=== PATIENT | female | born 1990 | race Two or more races ===

== ENCOUNTER 2016-10-20 08:55 | Emergency (ER) | payer OTHER ==
[~2016-10-20] VITALS: Ht 160 cm; Wt 54.0 kg
[~2016-10-20 08:55] MED LIST: MET250T PO
[2016-10-20 09:09] VITALS: BP 115/65
[2016-10-20 10:11] LABS: Urine Bilirubin Negative (Negative); Urine Color Yellow (Yellow); Urine Glucose Normal (Normal); Urine Ketone Negative (Negative); Urine Nitrite Negative (Negative); Urine RBC 5 /hpf (0 - 4); Urine Squamous Epithelial Cell FEW /hpf (<5); Urine Urobilinogen Normal (Negative); Urine pH 6.5 (5.0-8.0)
[2016-10-20 10:12] LABS: Urine Blood 2+ /uL (Negative)
== END 2016-10-20 12:00 | disposition left against medical advice (07) ==
LOC: ER 08:55
DX: O20.9 Hemorrhage in early pregnancy, unspecified (principal); Z3A.00 Weeks of gestation of pregnancy not specified; Z53.21 Procedure and treatment not carried out due to patient leaving prior to being seen by health care provider
CPT/HCPCS: 81001

== ENCOUNTER 2018-02-25 06:06 | Emergency (ER) | payer SELFPAY ==
[~2018-02-25] VITALS: Ht 160 cm; Wt 49.9 kg
[2018-02-25 06:19] VITALS: BP 114/76
== END 2018-02-25 08:36 | disposition home or self-care (01) ==
LOC: ER 06:10
DX: J20.9 Acute bronchitis, unspecified (principal); Z90.89 Acquired absence of other organs
CPT/HCPCS: 71046

== ENCOUNTER → 2019-07-05 | Emergency (ER) | payer OTHER ==
[~2019-07-05] VITALS: Ht 157.5 cm; Wt 52.6 kg
[~2019-07-05] MED LIST changes: -MET250T PO; +METH250T4 PO
[2019-07-05 15:54] VITALS: BP 123/85
[2019-07-05 16:43] LABS: Urine WBC None Seen /hpf (0 - 5)
[2019-07-05 16:55] LABS: Urine Bacteria FEW /hpf (None Seen); Urine Blood Negative /uL (Negative); Urine Specific Gravity 1.003 (1.001-1.035)
== END | disposition home or self-care (01) ==
LOC: ER 14:47
DX: R10.2 Pelvic and perineal pain (principal); Z88.0 Allergy status to penicillin; Z90.89 Acquired absence of other organs
CPT/HCPCS: 76856; 81001; 81025

== ENCOUNTER 2020-02-03 15:22 | Inpatient (IN) | payer MEDICAID, OTHER ==
[~2020-02-03] VITALS: Ht 160 cm; Wt 55.8 kg
[2020-02-03] MEDS ORDERED: ONDANSETRON HCL 4 MG/2 ML VIAL IV ONE (17:00)
[2020-02-03] MEDS ORDERED: SODIUM CHLORIDE 0.9% 1,000 ML IVB ONE (17:00)
[2020-02-03 17:41] LABS: Basophils # (auto) 0 10 ^3/uL (0-0.2); Basophils % (auto) 0.6 % (0.0-2.0); Eosinophils # (auto) 0.1 10 ^3/uL (0-0.8); Hematocrit 42.3 % (36.0-46.0); Hemoglobin 14.5 g/dL (12.2-16.2); Lymphocytes % (auto) 30.1 % (10.0-50.0); Mean Corpuscular Hemoglobin 29.9 pg (28.0-32.0); Mean Corpuscular Hgb Conc. 34.2 g/dL (32.0-36.0); Mean Corpuscular Volume 87.4 fL (80.0-100.0); Monocytes # (auto) 0.4 10 ^3/uL (0-1.3); Monocytes % (auto) 5.5 % (0.0-12.0); Neutrophils # (auto) 4.1 10 ^3/uL (1.6-8.6); Neutrophils % (auto) 61.8 % (37.0-80.0); Nucleated Red Blood Cells % 0.2 %; Platelet Count (auto) 258 10^3/uL (140-450); Red Blood Cells 4.84 10^6/uL (4.0-5.20); Red Cell Distribution Width 13.3 % (11.8-14.3); White Blood Cell 6.6 10^3/uL (4.4-10.8)
[2020-02-03 17:54] LABS: Albumin 4.1 g/dL (3.4-5.0); Anion Gap 6 (5-15); Blood Urea Nitrogen 13 mg/dL (7-18); Calcium 8.5 mg/dL (8.5-10.1); Carbon Dioxide 26 mmol/L (21-32); Chloride 106 mmol/L (98-107); Glucose 81 mg/dL (74-106); Potassium 3.7 mmol/L (3.5-5.1); Sodium 138 mmol/L (136-145)
[2020-02-03 17:59] LABS: Alanine Aminotransferase 18 U/L (13-56); Alkaline Phosphatase 84 U/L (45-117); Aspartate Aminotransferase 17 U/L (15-37); BUN/Creatinine Ratio 18.1; Bilirubin, Total 0.3 mg/dL (0.2-1.0); GFR African American 122 mL/min; GFR Non-African American 101 mL/min; Total Protein 7.6 g/dL (6.4-8.2)
[2020-02-03] MEDS ORDERED: ACETAMINOPHEN 325 MG TAB PO ONE (19:00)
[2020-02-03] MEDS ORDERED: MORPHINE SULF INJ 2 MG/ML SYRINGE 1ML IV PRN (21:30)
[2020-02-03] MEDS ORDERED: ACETAMINOPHEN 325 MG TAB PO PRN (21:30)
[2020-02-03] MEDS ORDERED: TEMAZEPAM 15 MG CAP PO PRN (21:30)
[2020-02-03] MEDS ORDERED: ONDANSETRON HCL 4 MG/2 ML VIAL IV PRN (21:30)
[2020-02-03] MEDS ORDERED: NITROGLYCERIN 0.4 MG SL TAB SL PRN (21:30)
[2020-02-03] MEDS: FAMOTIDINE 20 MG TAB PO SCH (21:59)
[2020-02-03 22:42] VITALS: BP 134/92
[2020-02-03] MEDS: HYDROcodone-ACET 5/325MG TAB PO PRN (23:56)
[2020-02-04] VITALS (7 sets, daily range): BP systolic 98–116; BP diastolic 60–71
[2020-02-04] MEDS ORDERED: INFLUENZA QUAD 2020-2021 0.5 ML SYRG IM ONE (01:00)
[2020-02-04] MEDS ORDERED: LEVO25TA6 PO (01:08)
[2020-02-04 06:15] LABS: Basophils # (auto) 0 10 ^3/uL (0-0.2); Basophils % (auto) 0.6 % (0.0-2.0); Eosinophils # (auto) 0.1 10 ^3/uL (0-0.8); Eosinophils % (auto) 1.8 % (0.0-7.0); Hematocrit 40.8 % (36.0-46.0); Hemoglobin 13.6 g/dL (12.2-16.2); Lymphocytes # (auto) 2.3 10 ^3/uL (0.4-5.4); Lymphocytes % (auto) 36.8 % (10.0-50.0); Mean Corpuscular Hemoglobin 29.4 pg (28.0-32.0); Mean Corpuscular Hgb Conc. 33.3 g/dL (32.0-36.0); Mean Corpuscular Volume 88.4 fL (80.0-100.0); Monocytes # (auto) 0.3 10 ^3/uL (0-1.3); Monocytes % (auto) 5.2 % (0.0-12.0); Neutrophils # (auto) 3.4 10 ^3/uL (1.6-8.6); Neutrophils % (auto) 55.6 % (37.0-80.0); Nucleated Red Blood Cells % 0.1 %; Platelet Count (auto) 247 10^3/uL (140-450); Red Blood Cells 4.62 10^6/uL (4.0-5.20); Red Cell Distribution Width 13.3 % (11.8-14.3); White Blood Cell 6.1 10^3/uL (4.4-10.8)
[2020-02-04] MEDS: LEVOTHYROXINE SODIUM 25 MCG TAB PO SCH (06:30)
[2020-02-04 06:38] LABS: Potassium 3.6 mmol/L (3.5-5.1)
[2020-02-04 06:48] LABS: BUN/Creatinine Ratio 15.8; Calcium 8.6 mg/dL (8.5-10.1)
[2020-02-04] MEDS: FAMOTIDINE 20 MG TAB PO SCH ×2 (09:10→21:39)
[2020-02-04] MEDS: HYDROcodone-ACET 5/325MG TAB PO PRN ×2 (14:09→21:43)
[2020-02-05] VITALS (7 sets, daily range): BP systolic 93–107; BP diastolic 55–64
[2020-02-05] MEDS: LEVOTHYROXINE SODIUM 25 MCG TAB PO SCH (06:20)
[2020-02-05] MEDS: HYDROcodone-ACET 5/325MG TAB PO PRN ×2 (06:20→19:32)
[2020-02-05 07:15] LABS: Basophils # (auto) 0 10 ^3/uL (0-0.2); Basophils % (auto) 0.5 % (0.0-2.0); Eosinophils # (auto) 0.2 10 ^3/uL (0-0.8); Hematocrit 40.5 % (36.0-46.0); Hemoglobin 13.4 g/dL (12.2-16.2); Lymphocytes # (auto) 1.9 10 ^3/uL (0.4-5.4); Lymphocytes % (auto) 33.4 % (10.0-50.0); Mean Corpuscular Hemoglobin 29.2 pg (28.0-32.0); Mean Corpuscular Hgb Conc. 33.1 g/dL (32.0-36.0); Mean Corpuscular Volume 88.1 fL (80.0-100.0); Monocytes # (auto) 0.5 10 ^3/uL (0-1.3); Monocytes % (auto) 8.1 % (0.0-12.0); Neutrophils # (auto) 3.1 10 ^3/uL (1.6-8.6); Nucleated Red Blood Cells % 0.2 %; Platelet Count (auto) 248 10^3/uL (140-450); Red Blood Cells 4.59 10^6/uL (4.0-5.20); Red Cell Distribution Width 13.2 % (11.8-14.3); White Blood Cell 5.7 10^3/uL (4.4-10.8)
[2020-02-05 07:35] LABS: Potassium 3.9 mmol/L (3.5-5.1)
[2020-02-05 07:40] LABS: BUN/Creatinine Ratio 12.1; Calcium 8.9 mg/dL (8.5-10.1)
[2020-02-05] MEDS: FAMOTIDINE 20 MG TAB PO SCH ×2 (09:20→21:16)
[2020-02-05 15:38] LABS: Urine Bacteria FEW /hpf (None Seen); Urine Blood 1+ /uL (Negative); Urine Mucus FEW (None Seen); Urine Specific Gravity 1.007 (1.001-1.035); Urine WBC 1 /hpf (0 - 5)
[2020-02-06 05:00] VITALS: BP 93/57
[2020-02-06] MEDS: LEVOTHYROXINE SODIUM 25 MCG TAB PO SCH (06:31)
[2020-02-06] MEDS: HYDROcodone-ACET 5/325MG TAB PO PRN (06:35)
[2020-02-06 07:16] LABS: Basophils # (auto) 0 10 ^3/uL (0-0.2); Basophils % (auto) 0.3 % (0.0-2.0); Eosinophils # (auto) 0.1 10 ^3/uL (0-0.8); Hematocrit 43.5 % (36.0-46.0); Hemoglobin 14.5 g/dL (12.2-16.2); Lymphocytes # (auto) 2.4 10 ^3/uL (0.4-5.4); Lymphocytes % (auto) 35.7 % (10.0-50.0); Mean Corpuscular Hemoglobin 29.4 pg (28.0-32.0); Mean Corpuscular Hgb Conc. 33.4 g/dL (32.0-36.0); Mean Corpuscular Volume 87.9 fL (80.0-100.0); Monocytes # (auto) 0.4 10 ^3/uL (0-1.3); Monocytes % (auto) 6.2 % (0.0-12.0); Neutrophils # (auto) 3.7 10 ^3/uL (1.6-8.6); Neutrophils % (auto) 55.8 % (37.0-80.0); Nucleated Red Blood Cells % 0.2 %; Platelet Count (auto) 274 10^3/uL (140-450); Red Blood Cells 4.95 10^6/uL (4.0-5.20); Red Cell Distribution Width 13.2 % (11.8-14.3); White Blood Cell 6.6 10^3/uL (4.4-10.8)
[2020-02-06 07:21] LABS: Potassium 3.7 mmol/L (3.5-5.1)
[2020-02-06 07:35] VITALS: BP 94/54
[2020-02-06 09:00] VITALS: BP 94/54
[2020-02-06] MEDS: FAMOTIDINE 20 MG TAB PO SCH (09:17)
[2020-02-06 12:35] VITALS: BP 94/54
== END 2020-02-06 13:41 | disposition home or self-care (01) | DRG 816 ==
LOC: ER 15:22 → TELE 15:23 → TELE-WESTW 22:42
PROVIDERS: ADMIT Nurse Practitioner; ATTEND Internal Medicine Pulmonary Disease
DX: T58.91XA Toxic effect of carbon monoxide from unspecified source, accidental (unintentional), initial encounter (principal); R51.9 Headache, unspecified; R00.1 Bradycardia, unspecified; E03.9 Hypothyroidism, unspecified; Z82.49 Family history of ischemic heart disease and other diseases of the circulatory system; Z83.3 Family history of diabetes mellitus; Y92.89 Other specified places as the place of occurrence of the external cause; Z88.0 Allergy status to penicillin
CPT/HCPCS: 36415; 36600; 70450; 71045; 80048; 80053; 81001; 82805; 84443; 84484; 84702; 85025; 87086; 96361; 96374; G0378; J2405

== ENCOUNTER 2020-08-07 17:39 | Emergency (ER) | payer MEDICAID, OTHER ==
[~2020-08-07] VITALS: Ht 160 cm; Wt 54.0 kg
[~2020-08-07 17:39] MED LIST changes: +LEVO25TA6 PO
[2020-08-07 17:46] VITALS: BP 127/87
[2020-08-07] MEDS ORDERED: KETOROLAC TROMETH 60MG/2ML VIAL IM ONE (18:45)
== END 2020-08-07 20:38 | disposition home or self-care (01) ==
LOC: ER 17:39
DX: J06.9 Acute upper respiratory infection, unspecified (principal); R07.9 Chest pain, unspecified; Z88.0 Allergy status to penicillin
CPT/HCPCS: 71045; 96372; 99283; J1885

== ENCOUNTER 2020-08-11 16:57 | Emergency (ER) | payer MEDICAID ==
[~2020-08-11] VITALS: Ht 160 cm; Wt 54.4 kg
[2020-08-11 19:30] VITALS: BP 101/80
== END 2020-08-11 19:30 | disposition home or self-care (01) ==
LOC: ER 16:57
DX: J20.9 Acute bronchitis, unspecified (principal); Z90.89 Acquired absence of other organs; Z20.822 Contact with and (suspected) exposure to COVID-19
CPT/HCPCS: 36415; 71046; 87426; 93005

== ENCOUNTER 2020-08-18 17:39 | Emergency (ER) | payer MEDICAID ==
[~2020-08-18] VITALS: Ht 160 cm; Wt 54.4 kg
[2020-08-18 18:27] LABS: Basophils # (auto) 0.1 10 ^3/uL (0-0.2); Basophils % (auto) 1.4 % (0.0-2.0); Eosinophils # (auto) 0.4 10 ^3/uL (0-0.8); Eosinophils % (auto) 5.3 % (0.0-7.0); Hematocrit 42.2 % (36.0-46.0); Lymphocytes # (auto) 1.1 10 ^3/uL (0.4-5.4); Mean Corpuscular Hemoglobin 29.8 pg (28.0-32.0); Mean Corpuscular Hgb Conc. 33.3 g/dL (32.0-36.0); Mean Corpuscular Volume 89.5 fL (80.0-100.0); Monocytes # (auto) 0.3 10 ^3/uL (0-1.3); Monocytes % (auto) 5.1 % (0.0-12.0); Neutrophils # (auto) 4.9 10 ^3/uL (1.6-8.6); Neutrophils % (auto) 72.2 % (37.0-80.0); Nucleated Red Blood Cells % 0.1 %; Platelet Count (auto) 335 10^3/uL (140-450); Red Blood Cells 4.72 10^6/uL (4.0-5.20); Red Cell Distribution Width 13.4 % (11.8-14.3); White Blood Cell 6.7 10^3/uL (4.4-10.8)
[2020-08-18 18:36] LABS: Albumin 3.8 g/dL (3.4-5.0); Anion Gap 5 (5-15); Blood Urea Nitrogen 11 mg/dL (7-18); Calcium 8.9 mg/dL (8.5-10.1); Carbon Dioxide 27 mmol/L (21-32); Chloride 105 mmol/L (98-107); Glucose 84 mg/dL (74-106); Potassium 3.7 mmol/L (3.5-5.1); Sodium 137 mmol/L (136-145)
[2020-08-18 18:42] LABS: Alanine Aminotransferase 16 U/L (13-56); Alkaline Phosphatase 71 U/L (45-117); Aspartate Aminotransferase 12 U/L (15-37); BUN/Creatinine Ratio 15.1; Bilirubin, Total 0.2 mg/dL (0.2-1.0); GFR African American 120 mL/min; GFR Non-African American 99 mL/min; Total Protein 7.5 g/dL (6.4-8.2)
[2020-08-18] MEDS ORDERED: IOHEXOL 350 MG/ML 100ML IJ ONE (18:49)
[2020-08-18 19:47] VITALS: BP 95/71
== END 2020-08-18 19:59 | disposition home or self-care (01) ==
LOC: ER 17:39
DX: R07.89 Other chest pain (principal); Z90.89 Acquired absence of other organs; Z98.890 Other specified postprocedural states
CPT/HCPCS: 36415; 71275; 80053; 84443; 84484; 85025; 85379; 93005; 99285; Q9967

== ENCOUNTER 2020-12-22 08:24 | Emergency (ER) | payer MEDICAID ==
[~2020-12-22] VITALS: Ht 160 cm; Wt 54.0 kg
[2020-12-22 09:17] VITALS: BP 124/87
== END 2020-12-22 11:51 | disposition home or self-care (01) ==
LOC: ER 08:24
DX: G89.29 Other chronic pain (principal); M54.5 Low back pain; M47.896 Other spondylosis, lumbar region; Z90.49 Acquired absence of other specified parts of digestive tract; Z79.899 Other long term (current) drug therapy; Z88.0 Allergy status to penicillin
CPT/HCPCS: 72100; 81025

== ENCOUNTER 2021-10-14 20:12 | Emergency (ER) | payer MEDICAID ==
[~2021-10-14] VITALS: Ht 157.5 cm; Wt 52.6 kg
[~2021-10-14 20:12] MED LIST changes: -METH250T4 PO; +METH250T8 PO
[2021-10-14 22:42] LABS: Basophils # (auto) 0 10 ^3/uL (0-0.2); Basophils % (auto) 0.6 % (0.0-2.0); Eosinophils # (auto) 0.1 10 ^3/uL (0-0.8); Eosinophils % (auto) 1.5 % (0.0-7.0); Hematocrit 47.2 % (36.0-46.0); Hemoglobin 15.5 g/dL (12.2-16.2); Lymphocytes # (auto) 2.2 10 ^3/uL (0.4-5.4); Lymphocytes % (auto) 28.9 % (10.0-50.0); Mean Corpuscular Hemoglobin 29.9 pg (28.0-32.0); Mean Corpuscular Hgb Conc. 32.9 g/dL (32.0-36.0); Mean Corpuscular Volume 91.1 fL (80.0-100.0); Monocytes # (auto) 0.4 10 ^3/uL (0-1.3); Monocytes % (auto) 4.6 % (0.0-12.0); Neutrophils % (auto) 64.4 % (37.0-80.0); Red Blood Cells 5.18 10^6/uL (4.0-5.20); Red Cell Distribution Width 13.1 % (11.8-14.3); White Blood Cell 7.8 10^3/uL (4.4-10.8)
[2021-10-14 23:02] LABS: Albumin 4.4 g/dL (3.4-5.0); BUN/Creatinine Ratio 9.7; Calcium 9.4 mg/dL (8.5-10.1); Potassium 4.3 mmol/L (3.5-5.1)
[2021-10-14 23:04] LABS: Bilirubin, Total 0.4 mg/dL (0.2-1.0); Total Protein 7.7 g/dL (6.4-8.2)
[2021-10-14 23:35] LABS: Urine Bacteria FEW /hpf (None Seen); Urine Blood TRACE /uL (Negative); Urine Specific Gravity 1.015 (1.001-1.035); Urine WBC 15 /hpf (0 - 5)
[2021-10-15] MEDS ORDERED: CEPH-509 PO ×2 (00:54→15:43)
[2021-10-15] MEDS ORDERED: CEPHALEXIN 250 MG CAP PO ONE (01:00)
[2021-10-15 02:32] VITALS: BP 124/71
[2021-10-17] MEDS ORDERED: LORazepam 2MG/ML-1ML VIAL ONE (15:43)
== END 2021-10-15 02:31 | disposition home or self-care (01) ==
LOC: ER 20:12
DX: N39.0 Urinary tract infection, site not specified (principal); R94.31 Abnormal electrocardiogram [ECG] [EKG]; Z88.0 Allergy status to penicillin
CPT/HCPCS: 36415; 70450; 80053; 81001; 84484; 84702; 85025; 93005

== ENCOUNTER 2022-08-10 10:51 | Emergency (ER) | payer MEDICAID ==
[~2022-08-10] VITALS: Ht 160 cm; Wt 59.0 kg
[~2022-08-10 10:51] MED LIST changes: +CEPH-509 PO
[2022-08-10 11:17] VITALS: BP 115/58
[2022-08-10] MEDS ORDERED: ACETAMINOPHEN 500 MG TAB PO ONE (14:45)
[2022-08-10] MEDS ORDERED: ONDANSETRON ODT 4 MG TAB PO ONE (14:45)
[2022-08-10] MEDS ORDERED: ONDA-144 PO (14:49)
[2022-08-10] MEDS ORDERED: HYDR-4902 PO (14:49)
== END 2022-08-10 17:03 | disposition home or self-care (01) ==
LOC: ER 10:51
DX: S09.8XXA Other specified injuries of head, initial encounter (principal); F07.81 Postconcussional syndrome; R55 Syncope and collapse; R10.2 Pelvic and perineal pain; Z32.02 Encounter for pregnancy test, result negative; W22.8XXA Striking against or struck by other objects, initial encounter; Y93.89 Activity, other specified; Y92.89 Other specified places as the place of occurrence of the external cause; Y99.8 Other external cause status
CPT/HCPCS: 36415; 70450; 81025; 84702; 99284; J7030; Q0162